=== PATIENT | female | born 1980 | race Two or more races ===

== ENCOUNTER 2018-10-18 19:46 | Inpatient (IN) | payer OTHER ==
[~2018-10-18] VITALS: Ht 170.2 cm; Wt 70.3 kg
--- NOTE | 2018-10-18 19:55 | NUR ---
PT BIBRA C/O LOWER BACK PAIN X1 DAY. WORKING OUT EARLIER TODAY, PAIN PROGRESSIVELY GETTING WORSE. TOOK [facility] POST ANESTHESIA ROOM NURSE, UNKNOWN DOSE. PT WAS WOKRING OUT AT THE GYM AND INJURED BACK. PT ON MONITOR IN ROOM 9 WITH FAMILY AT BEDSIDE.
[2018-10-18] MEDS ORDERED: HYDROMORPHONE 1 MG/1 ML DISP.SYRIN ONE ×2 (21:04→22:05)
[2018-10-18] MEDS ORDERED: KETOROLAC TROMETHAMINE INJ 30 MG/ML VIAL ONE (21:04)
[2018-10-18] MEDS ORDERED: ONDANSETRON HCL/PF 4 MG/2 ML VIAL ONE (21:04)
[2018-10-18] MEDS ORDERED: IV NS 0.9% 1,000 ML BAG IV ONE (21:30)
[2018-10-18] MEDS ORDERED: KETOROLAC TROMETHAMINE INJ 30 MG/ML VIAL IV ONE (21:30)
[2018-10-18] MEDS ORDERED: HYDROMORPHONE INJ 2 MG/ML DISP.SYRIN IV ONE (21:30)
[2018-10-18] MEDS ORDERED: ONDANSETRON HCL/PF 4 MG/2 ML VIAL IVP ONE (21:30)
--- NOTE | 2018-10-18 21:57 | NUR ---
URINE COLLECTED AND SENT TO LAB
--- NOTE | 2018-10-18 21:58 | NUR ---
PT STILL COMPLAINING OF PAIN. AWARE.
[2018-10-18 22:00] LABS: APPEARANCE,URINE Clear (CLEAR); BILIRUBIN,URINE Negative (NEGATIVE); BLOOD, URINE Trace-intact Ery/uL (NEGATIVE); COLOR,URINE Yellow (YELLOW); KETONES,URINE Negative (NEGATIVE); LEUKOCYTE ESTERASE ,URINE Negative (NEGATIVE); NITRITE, URINE Negative (NEGATIVE); PROTEIN,URINE Negative (NEGATIVE); UGLUCOSE Negative (NEGATIVE); UROBILINOGEN,URINE 0.2 EU/dL (0.2)
[2018-10-18 22:06] LABS: BACTERIA,URINE None seen /HPF (None Seen); SQUAMOUS EPITHELIAL CELL,UR Few /HPF (None Seen); WBC,URINE 0-2 /HPF (0-3)
[2018-10-18] MEDS ORDERED: HYDROMORPHONE 1 MG/1 ML DISP.SYRIN IV ONE (22:30)
--- NOTE | 2018-10-19 00:05 | NUR ---
Patient is resting comfortably in bed with eyes closed. Easily aroused. VSS. FAMILY AT BEDSIDE.
[2018-10-19] MEDS ORDERED: methylPREDNISolone SOD SUCC 125 MG/2ML VIAL IV ONE (00:30)
[2018-10-19] MEDS ORDERED: DIAZEPAM 5 MG/ML 2 ML DISP.SYRIN IV ONE (00:30)
--- NOTE | 2018-10-19 00:42 | NUR ---
DR BELL WAS PAGED
[2018-10-19] MEDS ORDERED: methylPREDNISolone SOD SUCC 125 MG/2ML VIAL ONE (00:48)
[2018-10-19] MEDS ORDERED: DIAZEPAM 10 MG TABLET ONE (00:49)
--- NOTE | 2018-10-19 00:49 | NUR ---
INFORMED EDISON KATE NO IV VALIUM. PER VERBAL ORDER, WILL ADMINISTER 10MG VALIUM PO X1 NOW
--- NOTE | 2018-10-19 00:54 | NUR ---
PT STATES SHE DOES NOT TAKE ANY HOME MEDICATIONS.
[2018-10-19] MEDS ORDERED: DIAZEPAM 10 MG TABLET PO ONE (01:00)
--- NOTE | 2018-10-19 01:28 | NUR ---
REPORT GIVEN TO RAÚL HOPE FOR YNE
[2018-10-19] MEDS: IV 1/2NS 1000 ML 1,000 ML IV PRN ×2 (01:50→16:52)
[2018-10-19] MEDS ORDERED: MAG HYDROX/AL HYDROX/SIMETH 30 ML UDC PO PRN (02:00)
[2018-10-19] MEDS ORDERED: ONDANSETRON HCL/PF 4 MG/2 ML VIAL IVP PRN (02:00)
[2018-10-19] MEDS ORDERED: Z GUARD REMEDY 2 OZ OINT TP PRN (02:00)
[2018-10-19] MEDS ORDERED: KETOROLAC TROMETHAMINE INJ 30 MG/ML VIAL IM PRN (02:00)
[2018-10-19] MEDS ORDERED: MAGNESIUM HYDROXIDE 30 ML UDC PO PRN (02:00)
[2018-10-19] MEDS ORDERED: ACETAMINOPHEN 325 MG TABLET PO PRN (02:00)
[2018-10-19] MEDS ORDERED: HYDROCODONE/APAP 5/325MG 1 EACH TABLET PO PRN (02:00)
[2018-10-19] MEDS ORDERED: ZOLPIDEM TARTRATE 5 MG TABLET PO PRN (02:00)
[2018-10-19 02:45] VITALS: BP 101/51
--- NOTE | 2018-10-19 02:58 | NUR ---
Receive patient via gurney from [facility] [place] at 0140, Pt a/o x4 Well developed, well nourished, in moderate distress secondary to pain 3-10 per pt she is more comfortable right now than earlier. stable condition respirations even and unlabored, with 98% room air. Range of motion limited secondary to pain. offered if she wants any pain medication per pt she doesn't need it right now. able to turn to the side, at bedside. head to toe assessment is done skin is intact. safety measures in place will cont to mtr. admit to MS.
[2018-10-19] MEDS: HYDROMORPHONE INJ 2 MG/ML DISP.SYRIN IV PRN ×4 (04:34→21:52)
--- NOTE | 2018-10-19 06:09 | NUR ---
RN CLOSING NOTE PT ASLEEP EASILY AWAKEN, RESPIRATIONS EVEN AND UNLABORED. NOT IN DISTRESS, STABLE. NEEDS ATTENDED AND ANTICIPATED, KEPT CLEAN AND DRY AND COMFORT. NO COMPLAIN OF PAIN. SAFETY MEASURES IN PLACE, BED IN LOW LOCKED POSITION, CALL LIGHT WITHIN EASY REACH. ENDORSE TO NEXT SHIFT CONTINUITY OF CARE.
--- NOTE | 2018-10-19 06:30 | NUR ---
PT TRANSFERRED TO ROOM 319 ALL BELONGINGS WITH THE PT. PT APPRECIATIVE
--- NOTE | 2018-10-19 07:40 | NUR ---
MS RN OPENING NOTES RECEIVED PT LAYING IN BED WITH HOB SLIGHTLY ELEVATED. PT IS A/O X4, AFEBRILE. RESPIRATIONS ARE EVEN AND UNLABORED, NOT IN ANY ACUTE DISTRESS NOTED. PT DENIES ANY PAIN AT THIS TIME, NO C/O SOB, N/V. IV SITE RAC INTACT, NO INFILTRATION NOTED. DRESSING KEPT CLEAN AND DRY. IV FLUIDS RUNNING AT 75ML/HR, TOLERATING WELL. SAFETY MEASURES ARE IN PLACE. WILL MONITOR THROUGHOUT SHIFT FOR CONTINUITY OF CARE.
[2018-10-19 08:00] VITALS: BP 98/47
--- NOTE | 2018-10-19 09:02 | NUR ---
MS RN NOTES-- CALLED DR. ABEL'S OFFICE, LEFT A MESSAGE WITH TAP DANCER AND STATED HE WILL CALL BACK.
--- NOTE | 2018-10-19 10:40 | NUR ---
TEXTED DR. FLORES FOR MRI APPROVAL.
--- NOTE | 2018-10-19 11:10 | NUR ---
MS RN NOTES-- PT SEEN AND EXAMINED BY DR. BECKMAN.
--- NOTE | 2018-10-19 15:00 | NUR ---
MS RN NOTES-- SPOKE WITH DR. ABEL RE: CONSULT AND STATED HE WILL GO OVER PT'S CHART. PT AND MADE AWARE AT BEDSIDE.
[2018-10-19 16:00] VITALS: BP 89/50
--- NOTE | 2018-10-19 18:37 | NUR ---
MS RN CLOSING NOTES ALL DUE MEDS GIVEN, NEEDS MET AND RENDERED. PT IS A/O X4, AFEBRILE. RESPIRATIONS ARE EVEN AND UNLABORED, NOT IN ANY ACUTE DISTRESS NOTED. PT DENIES ANY PAIN AT THIS TIME, NO C/O SOB, N/V. IV SITE RAC INTACT, NO INFILTRATION NOTED. DRESSING KEPT CLEAN AND DRY.REMINDED PT TO USE CALL LIGHT, CALL LIGHT LEFT WITHIN REACH. SAFETY MEASURES ARE IN PLACE. WILL ENDORSE TO NEXT SHIFT FOR CONTINUITY OF CARE.
--- NOTE | 2018-10-19 19:45 | NUR ---
RECEIVED PT IN BED AWAKE AND ALERT, BREATHING EVENLY. NO SOB. NAD. SKIN WARM AND DRY. REPORTED PAIN UNDER CONTROL BY "IV PAIN MEDICINE". THE OPTION OF USING A BED LAUREANO OR A BED SIDE COMMODE WERE EXPLAINED TO THE PT. PER PT SHE WILL TRY THE COMMODE. ALL NEEDS ATTENDED AND ALL QUESTIONS ANSWERED. CALL LIGHT WITHIN REACH. WILL CONT TO MONITOR ,
[2018-10-19 20:00] VITALS: BP 95/60
--- NOTE | 2018-10-19 20:43 | NUR ---
SPOKE TO THE THE MRI RESULTS WERE REVIEWED WITH HIM. HE IS ANXIOUS TO KNOW IF HER IS GONNA BE SEEN BY A NEUROLOGIST [place] AND IF HER SHOULD STAY AT THE HOSPITAL. RISKS VS BENEFITS OF STAYING AT THE HOSPITAL AND THEIR RIGHT TO LEAVE THE HOSPITAL AMA WERE EXPLAINED TO THE THEM WITH UNDERSTANDING.
--- NOTE | 2018-10-19 21:10 | NUR ---
PT WAS ASSISTED TO THE BSC WITH THE HELP OF . TOLERATED WELL. CLEAR YELLOW URINE WITH GOOD OP
--- NOTE | 2018-10-19 21:52 | NUR ---
DILAUDID GIVEN ORDERED PER PT'S REQUEST AND COMPLAIN OF SEVERE LOWER BACK PAIN. WILL CONT TO MONITOR. BP:101/58. PER PT SHE HAS BASELINE LOW BP. FALL PRECAUTION AND A/R OF DILAUDID WERE EXPLAINED TO THE PT AND THE WITH UNDERSTANDING. CALL LIGHT WITHIN REACH,. WILL CONT TO MONITOR
--- NOTE | 2018-10-20 | NUR ---
PT SLEEPING WITH NO S/S OF PAIN OR DISCOMFORT, WILL CONT TO MONITOR
--- NOTE | 2018-10-20 03:03 | NUR ---
ROUNDED. PT IN BED SLEEPING WELL W/ NAD.
[2018-10-20] MEDS: HYDROMORPHONE INJ 2 MG/ML DISP.SYRIN IV PRN (05:41)
--- NOTE | 2018-10-20 05:42 | NUR ---
DILAUDID GIVEN ORDERED PER PT'S REQUEST AND C/O SEVERE LOWER BACK PAIN. WILL CONT TO MONITOR,
[2018-10-20] MEDS: IV 1/2NS 1000 ML 1,000 ML IV PRN (05:51)
--- NOTE | 2018-10-20 06:32 | NUR ---
PT IN BED RESTING COMFORTABLY. RESPONDING WELL TO DILAUDID. NO ACUTE EVENT DURING THE NIGHT , ASSISTED WITH ADLS. CALL LIGHT WITHIN REACH, WILL CONT TO MONITOR , AND WILL ENDORSE TO AM SHIFT FOR YEN ,
--- NOTE | 2018-10-20 07:15 | NUR ---
MS RN OPENING NOTE RECEIVED PT IN BED, RESTING WITH EYES CLOSED AND EASILY AROUSABLE. PT IS A/OX4, DENIES CHEST PAIN, SOB, N/V. BREATHING IS EVEN AND UNLABORED ON ROOM AIR. NO ACUTE DISTRESS NOTED AT THIS TIME. R AC #20G IV IS INFUSING NS @ 75ML/HR WITHOUT REDNESS OR SWELLING. PT IS REFUSING AM LABS AT THIS TIME, RISKS AND BENEFITS EXPLAINED, PT STILL REFUSED. MANAGER GENERAL TO OFFER AGAIN LATER. ALL NEEDS ATTENDED TO. BED IS LOCKED AND IN LOWEST POSITION, SIDE RAILS UP X2, CALL LIGHT AND POSSESSIONS WITHIN REACH.
[2018-10-20 08:00] VITALS: BP 83/45
--- NOTE | 2018-10-20 08:35 | NUR ---
MS RN NOTE MCKINLEY OLIVA NP FOR DR. ABEL AT THE BEDSIDE FOR NEURO CONSULT WITH PT. ORDERS RECEIVED TO CHANGE TORADOL 30MGIM TO TORADOL 15MG IV. PER REINALDO OLIVA PT WILL REQUIRE SURGERY AT A LATER TIME AND INFORMATION HAS BEEN SENT TO [facility], THE INSTITUTE WILL CONTACT THE PT DIRECTLY. PER REINALDO OLIVA IF PT IS ABLE TO SAFELY WALK WITH PT TODAY, AND PAIN IS MANAGED WITH NORCO PO AND TORODOL, PT IS CLEARED TO D/C HOME TODAY FROM A NEURO STANDPOINT. WILL INFORMED HOSPITALIST.
[2018-10-20 09:24] LABS: BASOPHILS % (AUTO) 0.5 % (0.0-2.0); EOSINOPHILS % (AUTO) 0.9 % (0.0-6.0); HEMATOCRIT 36 % (33-45); HEMOGLOBIN 12.2 g/dL (11.5-14.8); LYMPHOCYTES # (AUTO) 2.6 /CMM (0.8-4.8); LYMPHOCYTES % (AUTO) 55.3 % (20.0-44.0); MEAN CORPUSCULAR HGB CONC 34 g/dl (31.0-36.0); MEAN CORPUSCULAR VOLUME 94 fL (82-100); MONOCYTES # (AUTO) 0.3 /CMM (0.1-1.30); MONOCYTES % (AUTO) 6.5 % (2.0-12.0); NEUTROPHILS # (AUTO) 1.8 /CMM (1.8-8.9); NEUTROPHILS % (AUTO) 36.8 % (43.0-81.0); PLATELET COUNT (AUTO) 213 /CMM (150-450); RED BLOOD CELL COUNT(AUTO) 3.78 MIL/uL (4.0-5.2); WHITE BLOOD COUNT (AUTO) 4.8 K/uL (4.3-11.0)
[2018-10-20] MEDS ORDERED: KETOROLAC TROMETHAMINE INJ 30 MG/ML VIAL IM/IV PRN ×2 (09:30→14:00)
[2018-10-20 09:59] LABS: CREATININE 0.7 mg/dL (0.6-1.3); MAGNESIUM 1.8 mg/dL (1.8-2.4); PHOSPHORUS 2.7 mg/dL (2.5-4.9)
--- NOTE | 2018-10-20 10:10 | NUR ---
MS RN NOTE SPOKE WITH LEAH (). PER LEAH, HE HAS AN APPOINTMENT WITH A SPECIALIST FOR THE PT BACK THIS AFTERNOON AND IS EAGER TO BE DISCHARGED. INFORMED LEAH AND THE PT THAT SHE HAS NOT BEEN MEDICALLY DISCHARGED BY PRIMARY HOSPITALIST YET. LEAH STATED HE AND THE PT ARE EAGER TO BE DISCHARGED WITH A PRESCRIPTION FOR PAIN MANAGEMENT. INFORMED LEAH THAT AT THIS TIME NO PRESCRIPTION IS AVAILABLE AND IT IS UP TO DR SIMEON WHAT THEY FEEL IS APPROPRIATE TO WRITE A PRESCRIPTION FOR, IF ANY. INFORMED LEAH THAT THE NURSE WILL CONTACT REGARDING DISCHARGE AND CONCERNS, LEAH AND PT AGREEABLE TO WAITING AT THIS TIME.
--- NOTE | 2018-10-20 10:14 | NUR ---
MS RN NOTE CONTACTED REGARDING LEAH () AND PT'S REQUEST TO BE DISCHARGED [facility] WITH A PRESCRIPTION FOR PAIN MEDICATION WELL INFORMED THAT THE PT HAS AN APPOINTMENT WITH SPECIALIST THIS AFTERNOON. AWAITING RESPONSE.
--- NOTE | 2018-10-20 10:22 | NUR ---
MS RN AGAINST MEDICAL ADVICE PT LEFT FACILITY AGAINST MEDICAL ADVICE, WITHOUT D/C ORDER AND WITHOUT BEING SEEN BY PRIMARY PHYSICIAN FIRST. AMA FORM SIGNED AND PLACED IN CHART. PT AND LEAH DECLINE DISCHARGE EXIT CARE AND EDUCATION. RIGHT AC PERIPHERAL IV REMOVED WITH CATHETER TIP INTACT. PER PT, SHE HAS AN APPOINTMENT WITH A LOADER SEMICONDUCTOR DIES AND WILL BE FOLLOWING UP THIS AFTERNOON WITH THEM. ALL BELONGINGS ACCOUNTED FOR PER PT HOWEVER PT DECLINED TO SIGN FORM. THE NURSE ACCOMPANIED THE PT AND TO THE MAIN LOBBY WITHOUT INCIDENT.
== END 2018-10-20 10:22 | disposition left against medical advice (07) | DRG 552 ==
LOC: ER 19:48 → MED 10-19 00:53
DX: M43.16 Spondylolisthesis, lumbar region (principal); G89.29 Other chronic pain; M48.061 Spinal stenosis, lumbar region without neurogenic claudication; M51.26 Other intervertebral disc displacement, lumbar region
CPT/HCPCS: 36415; 72131-TC; 72148-TC; 80048-TC; 80061-TC; 81000-TC; 83735-TC; 84100-TC; 84703-TC; 85025-TC; 87081-TC; 97110-TC; 97116-TC; 97530-TC; G0378; J1170; J1885; J2405; J2930; J3490; J7030